=== PATIENT | male | born 1995 | race American Indian/Alaskan Native ===

== ENCOUNTER 2020-01-07 18:33 | Emergency (ER) | payer OTHER ==
[2020-01-07 19:31] VITALS: BP 134/75
--- NOTE | 2020-01-07 20:17 | Emergency Department Report ---
Blank Doc - Documentation Documentation: 24-year-old male that presents with abdominal pain and blood in stool. This initial assessment/diagnostic orders/clinical plan/treatment(s) is/are subject to change based on patient's health status, clinical progression and re- assessment by fellow clinical providers in the ED. Further treatment and workup at subsequent clinical providers discretion. Patient/guardians urged not to elope from the ED as their condition may be serious if not clinically assessed and managed. Initial orders include: 1- Patient sent to MAIN ED for further evaluation and treatment 2- labs 3- UA
[2020-01-07 20:43] LABS: Basophils % (Auto) 0.7 % (0.0-1.8); Eosinophils # (Auto) 0.2 K/mm3 (0.0-0.4); Eosinophils % (Auto) 4.1 % (0.0-4.3); Hematocrit 40.2 % (35.5-45.6); Hemoglobin 13.6 gm/dl (11.8-15.2); Lymphocytes # (Auto) 1.9 K/mm3 (1.2-5.4); Lymphocytes % (Auto) 34.6 % (13.4-35.0); Mean Corpuscular HGB Conc 34 % (32-34); Mean Corpuscular Volume 92 fl (84-94); Monocytes # (Auto) 0.7 K/mm3 (0.0-0.8); Monocytes % (Auto) 13.6 % (0.0-7.3); Platelet Count 270 K/mm3 (140-440); Red Blood Count 4.38 M/mm3 (3.65-5.03); Red Cell Distribution Width 13.3 % (13.2-15.2)
[2020-01-07 21:05] LABS: Alanine Aminotransferase 12 units/L (7-56); Albumin 4.5 g/dL (3.9-5); BUN/Creatinine Ratio 14; Blood Urea Nitrogen 13 mg/dL (9-20); Calcium 9.3 mg/dL (8.4-10.2); Hemolysis Index 34
--- NOTE | 2020-01-08 00:42 | Emergency Department Report ---
ED General Adult HPI - General Chief complaint: GI Bleed Stated complaint: BLOOD IN STOOL/ABD PAIN Time Seen by Provider: 01/07/20 20:16 Source: patient Mode of arrival: Ambulatory Limitations: No Limitations - History of Present Illness Initial comments: Patient is a 24-year-old male presents emergency room with complaints of generalized abdominal discomfort that began a week ago. He states that he has been noticing a small amount of bright red blood in his stool and when he wipes. He denies ever having this before. He denies any constipation, straining with bowel movements, nausea, vomiting, pus in the stool, melena. He denies any past medical history. He denies any allergies to medications. He denies any family history. - Related Data Allergies Allergy/AdvReac Type Severity Reaction Status Date / Time No Known Allergies Allergy Unverified 01/07/20 20:17 ED Review of Systems ROS: Stated complaint: BLOOD IN STOOL/ABD PAIN Other details as noted in HPI Comment: All other systems reviewed and negative ED Past Medical Hx - Past Medical History Previous Medical History?: No - Surgical History Past Surgical History?: No - Social History Smoking Status: Current Some Day Smoker Substance Use Type: Alcohol ED Physical Exam - General Limitations: No Limitations General appearance: alert, in no apparent distress - Head Head exam: Present: atraumatic, normocephalic - Eye Eye exam: Present: normal appearance - ENT ENT exam: Present: mucous membranes moist - Respiratory Respiratory exam: Present: normal lung sounds bilaterally. Absent: respiratory distress, wheezes, rales, rhonchi, stridor, chest wall tenderness, accessory muscle use, decreased breath sounds, prolonged expiratory - Cardiovascular Cardiovascular Exam: Present: regular rate, normal rhythm, normal heart sounds. Absent: systolic murmur, diastolic murmur, rubs, gallop - GI/Abdominal GI/Abdominal exam: Present: soft, normal bowel sounds. Absent: distended, tenderness, guarding, rebound, rigid - Rectal Rectal exam: Present: normal rectal tone, heme (+) stool, other (brown stool, no gross blood, no hemorrhoids, no anal fissure, no induration, no ttp, record tester: [email or web address], EMT). Absent: hemorrhoids, mass, tenderness - Neurological Exam Neurological exam: Present: alert, oriented X3 - Psychiatric Psychiatric exam: Present: normal affect, normal mood - Skin Skin exam: Present: warm, dry, intact ED Course Vital Signs 01/07/20 01/08/20 19:27 00:56 Temperature 97.8 F Pulse Rate 70 83 Respiratory 20 16 Rate Blood Pressure 134/75 O2 Sat by Pulse 98 99 Oximetry ED Medical Decision Making - Lab Data Result diagrams: 01/07/20 20:24 01/07/20 20:24 Lab Results 01/07/20 01/07/20 Range/Units 20:24 20:24 WBC 5.5 (4.5-11.0) K/mm3 RBC 4.38 (3.65-5.03) M/mm3 Hgb 13.6 (11.8-15.2) gm/dl Hct 40.2 (35.5-45.6) % MCV 92 (84-94) fl MCH 31 (28-32) pg MCHC 34 (32-34) % RDW 13.3 (13.2-15.2) % Plt Count 270 (140-440) K/mm3 Lymph % (Auto) 34.6 (13.4-35.0) % Davis % (Auto) 13.6 H (0.0-7.3) % Eos % (Auto) 4.1 (0.0-4.3) % Baso % (Auto) 0.7 (0.0-1.8) % Lymph # 1.9 (1.2-5.4) K/mm3 Davis # 0.7 (0.0-0.8) K/mm3 Eos # 0.2 (0.0-0.4) K/mm3 Baso # 0.0 (0.0-0.1) K/mm3 Seg Neutrophils % 47.0 (40.0-70.0) % Seg Neutrophils # 2.6 (1.8-7.7) K/mm3 Sodium 139 (137-145) mmol/L Potassium 4.0 (3.6-5.0) mmol/L Chloride 100.2 (98-107) mmol/L Carbon Dioxide 22 (22-30) mmol/L Anion Gap 21 mmol/L BUN 13 (9-20) mg/dL Creatinine 0.9 (0.8-1.5) mg/dL Estimated GFR > 60 ml/min BUN/Creatinine Ratio 14 % Glucose 84 (75-100) mg/dL Calcium 9.3 (8.4-10.2) mg/dL Total Bilirubin 0.30 (0.1-1.2) mg/dL AST 17 (5-40) units/L ALT 12 (7-56) units/L Alkaline Phosphatase 74 (35-129) units/L Total Protein 7.7 (6.3-8.2) g/dL Albumin 4.5 (3.9-5) g/dL Albumin/Globulin Ratio 1.4 % Lipase 23 (13-60) units/L - Medical Decision Making Patient is a 24-year-old male presents emergency room with complaints of generalized abdominal discomfort that began a week ago. He states that he has been noticing a small amount of bright red blood in his stool and when he wipes. He denies ever having this before. He denies any constipation, straining with bowel movements, nausea, vomiting, pus in the stool, melena. He denies any past medical history. He denies any allergies to medications. He denies any family history. vss. on exam: No abdominal tenderness to palpation, no guarding, no rebound, no peritoneal signs, brown stool, no gross blood, no hemorrhoids, no anal fissure, no induration, no ttp, record tester: [email or web address], EMT, Hemoccult performed and developed by myself and it is positive for blood. labs are normal. H/H is normal. Will refer patient to a GI doctor to undergo further evaluation and management. advised pt to Please follow-up with a GI doctor in the next 3 to 5 days. It is very important that you follow-up with a GI doctor for further evaluation and management. Follow-up with a primary care doctor. Return to the emergency room for any new or worsening symptoms. - Differential Diagnosis Hemorrhoids, anal fissure, abscess, constipation, ulcerative colitis,Crohns Critical care attestation.: If time is entered above; I have spent that time in minutes in the direct care of this critically ill patient, excluding procedure time. ED Disposition Clinical Impression: Rectal bleeding Abdominal pain Qualifiers: Abdominal location: generalized Qualified Code(s): R10.84 - Generalized abdominal pain Disposition: DC-01 TO HOME OR SELFCARE Is pt being admited?: No Does the pt Need Aspirin: No Condition: Stable Instructions: Rectal Bleeding (ED) Additional Instructions: Please follow-up with a GI doctor in the next 3 to 5 days. It is very important that you follow-up with a GI doctor for further evaluation and management. Follow-up with a primary care doctor. Return to the emergency room for any new or worsening symptoms. Referrals: [facility] [Provider Group] - 3-5 Days GREG QUINTERO MD [Staff Physician] - 3-[address] [facility] [place] [Outside] - 3-5 Days [facility] [Outside] - 3-5 Days Forms: Accompanied Note Time of Disposition: 00:41 Print Language: ICELANDIC
== END 2020-01-08 00:56 | disposition home or self-care (01) ==
LOC: ED 18:33
DX: K62.5 Hemorrhage of anus and rectum (principal); R10.84 Generalized abdominal pain; F17.200 Nicotine dependence, unspecified, uncomplicated
CPT/HCPCS: 36415; 80053; 83690; 85025